=== PATIENT | female | born 1960 | race Caucasian/White ===

== ENCOUNTER 2019-03-18 18:52 | Emergency (ER) | payer OTHER, SELFPAY ==
[2019-03-18 19:05] VITALS: BP 164/101; PULSE 90; RESP 18; TEMP 36.6; O2SAT 100
[2019-03-18 19:55] LABS: Bacteria Urine None Seen
[2019-03-18] MEDS: KETOROLAC 60 MG/2 ML VIAL IM (20:09)
[2019-03-18 20:14] LABS: RBC Urine 5-10/HPF (0-5/HPF); WBC Urine 0-1/HPF (0-5/HPF)
[2019-03-18 20:15] LABS: Culture Indicated Urine Cult Not Indicated; Mucus Urine 1+ (Negative); Squamous Epithelial Cell Urine 0-1 /HPF (0-5/HPF)
[2019-03-18 20:42] LABS: Add Manual Diff / Slide Review NO; Basophils Absolute Auto 0 /uL (0-100); Basophils Percent Auto 0.2 % (0-2); Eosinophils Absolute Auto 0 /uL (0-450); Eosinophils Percent Auto 0.5 % (2-4); Hematocrit 44.7 % (36-46); Hemoglobin 15.1 g/dL (12.0-16.0); Lymphocytes Absolute Auto 2100 /uL (1100-4500); Lymphocytes Percent Auto 24.4 % (25-40); Mean Corpuscular HGB Conc 33.9 % (30-36); Mean Corpuscular Hemoglobin 31.5 PG (26-34); Mean Corpuscular Volume 92.9 fL (80-100); Monocytes Absolute Auto 600 /uL (0-900); Monocytes Percent Auto 6.8 % (3-14); Neutrophils Absolute Auto 5800 /uL (1500-7000); Neutrophils Percent Auto 68.1 % (50-75); Platelet Count 218 X10^3/uL (150-400); Red Blood Cell Count 4.82 X10^6/uL (4.0-5.2); Red Cell Distribution Width 12.8 % (11.6-14.8); White Blood Cell Count 8.5 X10^3/uL (4.5-11.0)
[2019-03-18 20:58] LABS: Alanine Aminotransferase 19 IU/L (9-52); Albumin 4.9 g/dL (3.5-5.0); Albumin Globulin Ratio 1.5 (1.0-2.8); Alkaline Phosphatase 79 U/L (38-126); Aspartate Aminotransferase 26 IU/L (14-36); BUN Creatinine Ratio 15.7 (6-22); Bilirubin Total 0.8 mg/dL (0.2-1.3); Blood Urea Nitrogen 11 mg/dL (7-17); Calcium 9.7 mg/dL (8.4-10.2); Carbon Dioxide 26 mmol/L (22-32); Chloride 101 mmol/L (98-107); Estimated Glomerular Filt Rate > 60.0 mL/min (>60); Globulin 3.3 g/dL (1.7-4.1); Glucose 101 mg/dL (70-100); HEMOLYSIS < 15 (0-50); Potassium 3.5 mmol/L (3.4-5.1); Sodium 139 mmol/L (137-145); Total Protein 8.2 g/dL (6.3-8.2)
--- NOTE | 2019-03-18 21:16 | ED.ABDPAIN ---
HPI - Abdominal Pain General Chief Complaint: Abdominal Pain Stated Complaint: ABD PAIN Time Seen by Provider: 03/18/19 21:16 Source: patient Mode of arrival: ambulatory Limitations: no limitations History of Present Illness HPI narrative: Patient is a 58-year-old female here for evaluation of multiple complaints to include lower abdominal pain, fatigue, subjective fevers, malaise. [place] She states that approximately a week ago she was prescribed Macrobid for a urinary tract infection secondary to her lower abdominal pain by her primary provider. She states that no urinalysis or urine culture was obtained. She states that she was not getting better so after a few days on the Macrobid she was started on 250 mg of Cipro. Again no urinalysis or urine culture was performed. She states that again she was not improving so she was switched to 500 mg of Cipro. She stop taking this 2 days ago after 3 days on the medication. She states that her lower abdomen is still hurting. She denies any vaginal bleeding. She states she has had a kidney stone in the past which needed lithotripsy. No prior abdominal surgeries. Has had some nausea but no vomiting. Also has had a couple episodes of diarrhea today. No blood in the stool. No sore throat. No sinus congestion. No cough. No chest pain. No shortness of breath. she states she has never had an STD in the past. She is not concerned about STDs. Related Data Allergies Allergy/AdvReac Type Severity Reaction Status Date / Time Penicillins Allergy Verified 03/18/19 19:08 Sulfa (Sulfonamide Allergy Verified 03/18/19 19:08 Antibiotics) ondansetron [From Zofran] AdvReac Verified 03/18/19 19:08 Review of Systems Constitutional Reports body ache(s), Reports fatigue, Reports fever(s), Reports headache(s), Reports lethargy, Reports malaise and Reports poor appetite ENT Ears, Nose, Mouth, and Throat: Denies vertigo, Reports headache(s), Denies sinus pressure and Denies sore throat Cardiovascular Denies chest pain, Denies edema and Denies dyspnea Respiratory Denies cough and Denies dyspnea Gastrointestinal Gastrointestinal: Reports abdominal pain, Denies constipation, Denies cramping, Reports diarrhea, Reports nausea and Denies vomiting Genitourinary Denies hematuria, Reports urinary frequency, Reports dysuria, Reports urinary urgency and Denies vaginal discharge Musculoskeletal Denies myalgias and Denies arthralgias Integumentary/Breasts Denies rash Neurologic Denies vertigo and Reports headache(s) Endocrine Reports fatigue Hematologic/Lymphatic Denies easy bleeding and Denies easy bruising Allergic/Immunologic Denies urticaria PFSH Medical History Kidney stones (Acute) Surgical History H/O lithotripsy (Acute) Social History Smoking Status: Never smoker Social History Smoking Status: Never smoker Exam Initial Vital Signs Initial Vital Signs: Vital Signs Temperature 97.9 F 03/18/19 19:05 Pulse Rate 90 03/18/19 19:05 Respiratory Rate 18 03/18/19 19:05 Blood Pressure 164/101 H 03/18/19 19:05 Pulse Oximetry 100 03/18/19 19:05 Const General: cooperative and No acute distress Orientation: alert, awake and oriented x3 HENMT Head: normal to inspection and normocephalic Resp Effort & Inspection: normal respiratory effort Auscultation: clear to auscultation bilaterally Cardio Rate: regular rate Rhythm: regular rhythm GI Inspection: non-distended Palpation: soft, No firm and tender (Lower abdomen suprapubic) Back/Spine/Pelvis Back: No CVA tenderness Skin Lesions: no lesions Rashes: no rashes Neuro General: alert, awake and oriented x3 Cognition: normal cognition Speech: speech normal Extrem General: normal to inspection and capillary refill normal Psych Appearance: grossly normal and well kempt Course Orders Ordered: ED Orders 03/18/19 19:40 Urine Culture Stat Urine Microscopic Stat 03/18/19 20:15 CBC [Complete Blood Count AUTO DIFF] Stat CMP [Comprehensive Metabolic Panel] Stat 03/18/19 21:55 CT abdomen pelvis w con Stat Discontinued Medications Acetaminophen (Tylenol) 650 mg PO NOW ONE Stop: 03/18/19 21:56 Last Admin: 03/18/19 21:58 Dose: 650 mg Acetaminophen/Codeine Phosphate (Tylenol #3 Prepack) 1 bottle MISC SEEINSTR ONE Stop: 03/18/19 23:46 Last Admin: 03/18/19 23:49 Dose: 1 bottle Sodium Chloride (Normal Saline 0.9%) 1,000 mls @ 1,000 mls/hr IV BOLUS ONE Stop: 03/18/19 22:42 Last Infusion: 03/18/19 22:59 Dose: 1,000 mls/hr Admin: 03/18/19 21:30 Dose: 1,000 mls/hr Ketorolac Tromethamine (Toradol) 60 mg IM NOW ONE Stop: 03/18/19 20:07 Last Admin: 03/18/19 20:09 Dose: 60 mg Phenazopyridine HCl (Pyridium 100mg Prepack) 1 bottle MISC SEEINSTR ONE Stop: 03/18/19 23:27 Last Admin: 03/18/19 23:31 Dose: 1 bottle Vital Signs - 8 hr 03/18/19 21:30 03/19/19 00:00 Pulse Rate 88 81 Respiratory Rate 14 15 Blood Pressure 140/91 H Blood Pressure [Left Arm] 146/93 H Pulse Oximetry 100 99 MDM - Abdominal Pain Lab Data Attestation: I reviewed the patient's lab results. Result diagrams: 03/18/19 20:15 03/18/19 20:15 Lab Results 03/18/19 03/18/19 03/18/19 Range/Units 19:40 20:15 20:15 WBC 8.5 (4.5-11.0) X10^3/uL RBC 4.82 (4.0-5.2) X10^6/uL Hgb 15.1 (12.0-16.0) g/dL Hct 44.7 (36-46) % MCV 92.9 (80-100) fL MCH 31.5 (26-34) PG MCHC 33.9 (30-36) % RDW 12.8 (11.6-14.8) % Plt Count 218 (150-400) X10^3/uL Neut % (Auto) 68.1 (50-75) % Lymph % (Auto) 24.4 L (25-40) % [place] % (Auto) 6.8 (3-14) % Eos % (Auto) 0.5 L (2-4) % Baso % (Auto) 0.2 (0-2) % Neut # (Auto) 5800 (8687-7217) /uL Lymph # (Auto) 2100 (9619-4615) /uL [place] # (Auto) 600 (0-900) /uL Eos # (Auto) 0 (0-450) /uL Baso # (Auto) 0 (0-100) /uL Sodium 139 (137-145) mmol/L Potassium 3.5 (3.4-5.1) mmol/L Chloride 101 (98-107) mmol/L Carbon Dioxide 26 (22-32) mmol/L BUN 11 (7-17) mg/dL Creatinine 0.70 (0.52-1.04) mg/dL Estimated GFR > 60.0 (>60) mL/min BUN/Creatinine Ratio 15.7 (6-22) Glucose 101 H (70-100) mg/dL Calcium 9.7 (8.4-10.2) mg/dL Total Bilirubin 0.8 (0.2-1.3) mg/dL AST 26 (14-36) IU/L ALT 19 (9-52) IU/L Alkaline Phosphatase 79 (38-126) U/L Total Protein 8.2 (6.3-8.2) g/dL Albumin 4.9 (3.5-5.0) g/dL Globulin 3.3 (1.7-4.1) g/dL Albumin/Globulin Ratio 1.5 (1.0-2.8) Urine RBC 5-10/hpf H (0-5/HPF) Urine WBC 0-1/hpf (0-5/HPF) Ur Squamous Epith Cells 0-1 /hpf (0-5/HPF) Urine Bacteria None seen (None) Urine Mucus 1+ H (Negative) Ur Culture Indicated? Cult not indicated Point of care testing: Urine Dip Bedside Urine Glucose Negative Bedside Urine Bilirubin - Negative Bedside Urine Ketone - Negative Urine Specific [place] 1.020 Bedside Urine Occult Blood ++ Bedside Urine pH 6.0 Bedside Urine Protein - Negative Bedside Urine Urobilinogen - Negative Bedside Urine Nitrite - Negative Bedside Urine Leukocytes - Negative Esterase Imaging Data CT scan - abdomen: Radiologist's impression: Probable fibroids. Consider pelvic ultrasound for further evaluation. 9 cm region of fat attenuation in the right abdomen: Considerations would include lipoma in the mesentery Right nephrolithiasis MDM Narrative Medical decision making narrative: Patient is nontoxic appearing. She has no objective findings except for a benign abdominal exam was she has tenderness in her lower abdomen. She is afebrile here in the ER. Does not have an elevated white blood cell count. Her urine is negative except for red blood cells. She has no signs of ureteral stones on the CT scan. We did discuss her right kidney stone. Informed her that these do not cause issues or pain. She is insistent that the last time that she had a stone in her kidney that is what was causing her lower abdominal pain and that needed lithotripsy. I informed her that based on her renal studies today and her CT scan and the lack of infection in her urine currently that if the stone in her kidney was causing her abdominal pain this is something that would have to be treated as an outpatient by her urologist. We did discuss the blood in her urine. Informed her that she needed to talk with her primary doctor about this. We did discuss the fibroids on the CT scan. Patient states that she knows that she has fibroids. There is no signs of appendicitis or diverticulitis. Given her urinalysis today I do not feel the need to complicate the picture was starting another course of antibiotics after she has been on both Macrobid and Cipro. A urine culture was ordered today despite the lack of other evidence on the urinalysis for infection. I informed the patient that I did not have an exact etiology is the cause of her symptoms however they do not appear to be any surgical issue or infectious issue or other emergent issue. She did not have a fever so will hold on testing for the flu. Patient seen very upset by this lack of definitive diagnosis. Had to return to the room multiple times after the discharge paperwork was printed to answer questions and again to try to reassure the patient. Her was at the bedside for these discussions. They both expressed understanding of our discussions. She was given return precautions and follow-up instructions. Discharge Plan Departure Patient Disposition: Home Clinical Impression: Abdominal pain Qualifiers: Abdominal location: lower abdomen, unspecified Qualified Code(s): R10.30 - Lower abdominal pain, unspecified Headache Qualifiers: Headache type: unspecified Headache chronicity pattern: unspecified pattern Intractability: not intractable Qualified Code(s): R51 - Headache Discharge Date/Time: 03/19/19 00:00 Interventions: ED Discharge Assessment Last Done: 03/19/19 00:00 Instructions: DI for Abdominal Pain-Adult Activity Restrictions/Additional Instructions: I did order a urine culture from the sample that you provided. This does take 2-3 days to result. We will call you for any positive results. You can take Tylenol and/or Motrin for any fevers and body aches and headaches. Increase your fluid intake. Use the Pyridium as directed. When you return home contact your primary doctor for a follow-up. Return to the emergency department for any new symptoms
[2019-03-18 21:30] VITALS: BP 146/93; PULSE 88; RESP 14; O2SAT 100
[2019-03-18] MEDS: SODIUM CHLORIDE 0.9% 1,000 ML 1000 ML IV (21:30)
--- NOTE | 2019-03-18 21:55 | DI.CT.S_ITS ---
PROCEDURE: CT ABDOMEN PELVIS W CON INDICATIONS: Lower abdominal pain TECHNIQUE: After the administration of intravenous contrast, 5 mm thick sections acquired from the diaphragm to the symphysis. 5 mm coronal and sagittal reformats were acquired. For radiation dose reduction, the following was used: automated exposure control, adjustment of mA and/or kV according to patient size. COMPARISON: None. FINDINGS: Image quality: Excellent. ABDOMEN: Lung bases: Lung bases are clear. Heart size is normal. Solid organs: Liver is normal in size and enhancement. Gallbladder is within normal limits. Biliary system is non dilated. Pancreas enhances normally. Spleen is normal in size and enhancement. No adrenal nodules. Kidneys demonstrate normal size and enhancement, without hydronephrosis. 8 mm nonobstructing stone in midpole of right kidney is seen. Peritoneum and bowel: Bowel loops demonstrate normal wall thickness and caliber. No free fluid or air. The appendix is visualized and is within normal limits. There is an area of fat density within right lower quadrant mesentery displacing adjacent bowel loops and measures approximately 7.5 x 5 x 6 cm in size. Nodes and vessels: No retroperitoneal or mesenteric adenopathy by size criteria. Aorta and inferior vena cava are normal in size. Miscellaneous: No ventral hernias. PELVIS: Genitourinary: Bladder wall thickness is normal. Slight bulky appearing uterus is seen, which may represent uterine fibroids. Miscellaneous: No inguinal hernias or adenopathy. Bones: No suspicious bony lesions. No vertebral body compression fractures. Mild degenerative disc disease in lower lumbar spine at L3-4 through L5-S1 levels are seen. IMPRESSION: 1. No bowel obstruction. Normal appendix. No free fluid or free air. 2. 7.5 x 5 x 6 cm fat attenuation in right lower quadrant mesentery, which could represent a lipoma in this area. 3. Right nephrolithiasis, no hydronephrosis. 4. Possible uterine fibroids. No significant discrepancies. Dictated by: Kwan Islas M.D. on 03/19/2019 at 8:16 Approved by: Kwan Islas M.D. on 03/19/2019 at 8:21
[2019-03-18] MEDS: ACETAMINOPHEN 325 MG TABLET 650 MG PO (21:58)
[2019-03-18] MEDS: PHENAZOPYRIDINE 100 MG PREPACK 1 BOTTLE MISC (23:31)
[2019-03-18] MEDS: CODEINE/APAP 30/300 PREPACK 1 BOTTLE MISC (23:49)
[2019-03-19] VITALS: BP 140/91; PULSE 81; RESP 15; O2SAT 99
== END 2019-03-19 | disposition home or self-care (01) ==
PROVIDERS: Nurse Practitioner Family; Emergency Provider Emergency Medicine
DX: R10.30 Lower abdominal pain, unspecified (principal); R51 Headache
CPT/HCPCS: 74177; 80053; 81003; 81015; 85025; 87086; 96360; 96372; 99283; 99284; J1885; Q9967